=== PATIENT | female | born 1970 | race African-American/Black ===

== ENCOUNTER 2018-11-25 15:02 | Inpatient (IN) | payer OTHER ==
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
[2018-11-25] MEDS ORDERED: MAG HYDROX/AL HYDROX/SIMETH 30 ML UNIT-DOSE CUP PO PRN (19:13)
[2018-11-25] MEDS ORDERED: NICOTINE POLACRILEX 2 MG GUM BC PRN (19:13)
[2018-11-25] MEDS ORDERED: MENTHOL/PHENOL 1 EACH UD MM PRN (19:13)
[2018-11-25] MEDS ORDERED: ACETAMINOPHEN 325 MG TABLET (FP) PO PRN (19:13)
[2018-11-25] MEDS ORDERED: guaiFENesin 200 MG/10 ML 10 ML UNIT-DOSE CUPS PO PRN (19:13)
[2018-11-25] MEDS ORDERED: P-EPHED 60MG/TRIPROLIDI 2.5MG TABLET PO PRN (19:13)
[2018-11-25] MEDS ORDERED: BENZOYL PEROXIDE TP SCH (19:15)
[2018-11-25] MEDS: MELATONIN 5 MG TABLETS PO PRN (22:08)
[2018-11-25] MEDS: THIAMINE HCL 100 MG TABLET (FP) PO SCH (22:26)
[2018-11-25] MEDS: AMMONIUM LACTATE 12% LOTION 225 GM BOTTLE TP SCH (23:56)
[2018-11-25] MEDS: CLINDAMYCIN PHOSPHATE 1% TOPICAL GEL 30 GM TUBE TP SCH (23:56)
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
[2018-11-26] MEDS: CLINDAMYCIN PHOSPHATE 1% TOPICAL GEL 30 GM TUBE TP SCH ×2 (09:34→21:26)
[2018-11-26] MEDS: AMMONIUM LACTATE 12% LOTION 225 GM BOTTLE TP SCH (09:34)
[2018-11-26] MEDS: PRENATAL VITAMINS W/ FOLIC ACID TABLET (FP) PO SCH (09:34)
[2018-11-26] MEDS ORDERED: BUPRENORPHINE/NALOXONE 8 MG/2 MG FILM PACKET SL ONE (11:04)
[2018-11-26] MEDS ORDERED: BUPRENORPHINE/NALOXONE 2 MG/0.5 MG FILM PACKET SL ONE (11:04)
--- NOTE | 2018-11-26 11:10 | PN ---
[facility] Progress Note Note: CALL FROM NURSE LEONOR CONFIRMING SUBOXONE DOSE FROM PT'S CLINIC AT [facility]. PT ON SUBOXONE 10 MG/2.5 MG SL DAILY, REPORTED CONFIRMED LAST DOSE WAS 11/25/18. PLAN:WILL RESTART SUBOXONE 8 MG/2 MG SL PLUS SUBOXONE 2 MG/0.5 MG SL DAILY. FIRST DOSE NOW. Vital Signs - 24 hr 11/25/18 11/26/18 11/26/18 17:21 00:30 03:30 Temperature 97.0 F L Pulse Rate 86 Respiratory 18 18 18 Rate Blood Pressure 138/94 11/26/18 07:30 Temperature 97.7 F Pulse Rate 74 Respiratory 18 Rate Blood Pressure 121/79 ADMISSION LAB RESULTS PENDING. CONTINUE REHAB TX.
[2018-11-26] MEDS: SERTRALINE HCL 50 MG TABLET (FP) PO SCH (12:22)
[2018-11-26 12:39] LABS: HEMATOCRIT 36.9 % (32.4-45.2); HEMOGLOBIN 12.4 GM/dL (10.7-15.3); MCH 30.6 pg (25.7-33.7); MCHC 33.5 g/dl (32.0-36.0); MEAN CELL VOLUME 91.2 fl (80-96); MEAN PLT VOLUME 8.7 fl (7.5-11.1); PLATELET COUNT 297 K/MM3 (134-434); RBC 4.05 M/mm3 (3.60-5.2); RDW 13.4 % (11.6-15.6); WHITE BLOOD COUNT 4.4 K/mm3 (4.0-10.0)
[2018-11-26 12:41] LABS: ALBUMIN 3.3 g/dl (3.4-5.0); ALK PHOS 79 U/L (45-117); ANION GAP 5 MMOL/L (8-16); BILIRUBIN,TOTAL 0.3 mg/dL (0.2-1); BLOOD UREA NITROGEN 10 mg/dL (7-18); CALCIUM 8.5 mg/dL (8.5-10.1); CHLORIDE 105 mmol/L (98-107); CO2 29 mmol/L (21-32); CREATININE 0.8 mg/dL (0.55-1.3); GLUCOSE,RANDOM 86 mg/dL (74-106); POTASSIUM 4.2 mmol/L (3.5-5.1); SGOT/AST 19 U/L (15-37); SGPT/ALT 18 U/L (13-61); SODIUM 139 mmol/L (136-145); TOT PROT 6.6 g/dl (6.4-8.2)
[2018-11-26] MEDS ORDERED: COLLOIDAL OATMEAL 1 BAR EACH TP PRN (13:26)
[2018-11-26] MEDS ORDERED: BENZOYL PEROXIDE 5% 60 GM GEL..GRAM. TP ONE (13:36)
[2018-11-26] MEDS: BENZOYL PEROXIDE 5% 60 GM GEL..GRAM. TP SCH (14:00)
[2018-11-26] MEDS: NICOTINE 14 MG/24 HOURS TOPICAL PATCH TD SCH (14:16)
[2018-11-26] MEDS: THIAMINE HCL 100 MG TABLET (FP) PO SCH (21:23)
[2018-11-26] MEDS: MIRTAZAPINE 15 MG TABLET (FP) PO SCH (21:25)
[2018-11-26] MEDS: MELATONIN 5 MG TABLETS PO PRN (21:25)
[2018-11-27] MEDS ORDERED: PT OWN MED DRAWER 7, Y5N ONE (08:47)
[2018-11-27] MEDS: BUPRENORPHINE/NALOXONE 2 MG/0.5 MG FILM PACKET SL SCH (09:31)
[2018-11-27] MEDS: NICOTINE 14 MG/24 HOURS TOPICAL PATCH TD SCH (09:31)
[2018-11-27] MEDS: BUPRENORPHINE/NALOXONE 8 MG/2 MG FILM PACKET SL SCH (09:31)
[2018-11-27] MEDS: AMMONIUM LACTATE 12% LOTION 225 GM BOTTLE TP SCH (09:31)
[2018-11-27] MEDS: SERTRALINE HCL 50 MG TABLET (FP) PO SCH (09:32)
[2018-11-27] MEDS: PRENATAL VITAMINS W/ FOLIC ACID TABLET (FP) PO SCH (09:32)
[2018-11-27] MEDS: TRIAMCINOLONE ACET 0.025% OINTMENT 15 GM TUBE TP SCH (09:33)
[2018-11-27] MEDS: CLINDAMYCIN PHOSPHATE 1% TOPICAL GEL 30 GM TUBE TP SCH ×2 (09:33→21:13)
[2018-11-27] MEDS: BENZOYL PEROXIDE 5% 60 GM GEL..GRAM. TP SCH (09:35)
[2018-11-27 12:32] LABS: PH,URINE 6.5 (5.0-8.0); URINE APPEARANCE CLEAR; URINE BILIRUBIN NEGATIVE (NEGATIVE); URINE COLOR YELLOW; URINE GLUCOSE (UA) NEGATIVE (NEGATIVE); URINE KETONE NEGATIVE (NEGATIVE); URINE LEUK ESTERASE NEGATIVE (NEGATIVE); URINE NITRITE NEGATIVE (NEGATIVE); URINE PROTEIN NEGATIVE (NEGATIVE); URINE UROBILINOGEN 0.2 mg/dL (0.2-1.0)
[2018-11-27] MEDS: MIRTAZAPINE 15 MG TABLET (FP) PO SCH (21:10)
[2018-11-27] MEDS: hydrOXYzine PAMOATE 25 MG CAPSULE (FP) PO PRN (21:10)
[2018-11-27] MEDS: THIAMINE HCL 100 MG TABLET (FP) PO SCH (21:11)
[2018-11-28] MEDS: BUPRENORPHINE/NALOXONE 8 MG/2 MG FILM PACKET SL SCH (09:32)
[2018-11-28] MEDS: SERTRALINE HCL 50 MG TABLET (FP) PO SCH (09:32)
[2018-11-28] MEDS: NICOTINE 14 MG/24 HOURS TOPICAL PATCH TD SCH (09:32)
[2018-11-28] MEDS: BUPRENORPHINE/NALOXONE 2 MG/0.5 MG FILM PACKET SL SCH (09:32)
[2018-11-28] MEDS: PRENATAL VITAMINS W/ FOLIC ACID TABLET (FP) PO SCH (09:32)
[2018-11-28] MEDS: BENZOYL PEROXIDE 5% 60 GM GEL..GRAM. TP SCH (09:33)
[2018-11-28] MEDS: AMMONIUM LACTATE 12% LOTION 225 GM BOTTLE TP SCH (09:33)
[2018-11-28] MEDS: TRIAMCINOLONE ACET 0.025% OINTMENT 15 GM TUBE TP SCH (09:34)
[2018-11-28] MEDS ORDERED: PT OWN MED DRAWER 7, Y5N ONE ×4 (09:36→21:38)
[2018-11-28] MEDS: CLINDAMYCIN PHOSPHATE 1% TOPICAL GEL 30 GM TUBE TP SCH ×2 (09:36→21:37)
--- NOTE | 2018-11-28 09:43 | PN ---
[facility] Progress Note Note: PATIENT SEEN FOR C/O SORE THROAT. PATIENT DENIES FEVER, EARACHE AND COUGH. Vital Signs Temperature 97.9 F 11/28/18 07:16 Pulse Rate 69 11/28/18 07:16 Respiratory Rate 18 11/28/18 07:16 Blood Pressure 118/84 11/28/18 07:16 O2 Sat by Pulse Oximetry (%) Laboratory Tests 11/26/18 11/26/18 11/26/18 09:08 09:08 09:08 WBC 4.4 RBC 4.05 Hgb 12.4 Hct 36.9 MCV 91.2 MCH 30.6 MCHC 33.5 RDW 13.4 Plt Count 297 D MPV 8.7 D Sodium 139 Potassium 4.2 Chloride 105 Carbon Dioxide 29 Anion Gap 5 L BUN 10 Creatinine 0.8 Creat Clearance w eGFR 76.24 Random Glucose 86 Calcium 8.5 Total Bilirubin 0.3 AST 19 ALT 18 Alkaline Phosphatase 79 Total Protein 6.6 Albumin 3.3 L Urine Color Urine Appearance Urine pH Ur Specific [place] Urine Protein Urine Glucose (UA) Urine Ketones Urine Blood Urine Nitrite Urine Bilirubin Urine Urobilinogen Ur Leukocyte Esterase RPR Titer Nonreactive 11/27/18 09:45 WBC RBC Hgb Hct MCV MCH MCHC RDW Plt Count MPV Sodium Potassium Chloride Carbon Dioxide Anion Gap BUN Creatinine Creat Clearance w eGFR Random Glucose Calcium Total Bilirubin AST ALT Alkaline Phosphatase Total Protein Albumin Urine Color Yellow Urine Appearance Clear Urine pH 6.5 D Ur Specific [place] 1.012 Urine Protein Negative Urine Glucose (UA) Negative Urine Ketones Negative Urine Blood Negative Urine Nitrite Negative Urine Bilirubin Negative Urine Urobilinogen 0.2 Ur Leukocyte Esterase Negative RPR Titer PE: ALERT AND ORIENTED X 3 SKIN WARM AND DRY NECK SUPPLE,NO JVD ENT ORAL MUCOSA MOIST, PINK, NO VISIBLE EXUDATE, PHARYNX WITH MILD REDNESS TONGUE DRY, LIGHT WHITE COATING ON TONGUE CAR S1S2 RESP CTA BL A/P: PHARYNGITIS THROAT CULTURE AMOXICILLIN 500MG BID X 7 DAYS EMPIRICALLY UNTIL RESULTS AVAILABLE PERIDEX MM CONTINUE TO MONITOR CLINICALLY
[2018-11-28] MEDS: AMOXICILLIN 500 MG CAPSULE (FP) PO SCH ×2 (12:02→21:39)
[2018-11-28] MEDS: CHLORHEXIDINE GLUCONATE 118 ML MOUTHWASH MM SCH ×2 (12:02→21:39)
[2018-11-28] MEDS: THIAMINE HCL 100 MG TABLET (FP) PO SCH (21:36)
[2018-11-28] MEDS: MIRTAZAPINE 15 MG TABLET (FP) PO SCH (21:37)
[2018-11-29] MEDS: AMOXICILLIN 500 MG CAPSULE (FP) PO SCH ×2 (10:07→21:33)
[2018-11-29] MEDS: CHLORHEXIDINE GLUCONATE 118 ML MOUTHWASH MM SCH ×2 (10:08→21:33)
[2018-11-29] MEDS: TRIAMCINOLONE ACET 0.025% OINTMENT 15 GM TUBE TP SCH (10:08)
[2018-11-29] MEDS: BENZOYL PEROXIDE 5% 60 GM GEL..GRAM. TP SCH (10:08)
[2018-11-29] MEDS: NICOTINE 14 MG/24 HOURS TOPICAL PATCH TD SCH (10:09)
[2018-11-29] MEDS: AMMONIUM LACTATE 12% LOTION 225 GM BOTTLE TP SCH (10:09)
[2018-11-29] MEDS: CLINDAMYCIN PHOSPHATE 1% TOPICAL GEL 30 GM TUBE TP SCH ×2 (10:09→21:34)
[2018-11-29] MEDS: BUPRENORPHINE/NALOXONE 8 MG/2 MG FILM PACKET SL SCH (10:10)
[2018-11-29] MEDS: BUPRENORPHINE/NALOXONE 2 MG/0.5 MG FILM PACKET SL SCH (10:10)
[2018-11-29] MEDS: PRENATAL VITAMINS W/ FOLIC ACID TABLET (FP) PO SCH (10:10)
[2018-11-29] MEDS: SERTRALINE HCL 50 MG TABLET (FP) PO SCH (10:57)
[2018-11-29] MEDS: MAGNESIUM HYDROX 2400MG/30ML ORAL SUSPENSION 30 ML CUP PO PRN (17:25)
[2018-11-29] MEDS: THIAMINE HCL 100 MG TABLET (FP) PO SCH (21:32)
[2018-11-29] MEDS: MIRTAZAPINE 15 MG TABLET (FP) PO SCH (21:32)
[2018-11-30] MEDS: PRENATAL VITAMINS W/ FOLIC ACID TABLET (FP) PO SCH (09:36)
[2018-11-30] MEDS: AMOXICILLIN 500 MG CAPSULE (FP) PO SCH ×2 (09:36→21:12)
[2018-11-30] MEDS: SERTRALINE HCL 50 MG TABLET (FP) PO SCH (09:37)
[2018-11-30] MEDS: NICOTINE 14 MG/24 HOURS TOPICAL PATCH TD SCH (09:37)
[2018-11-30] MEDS: AMMONIUM LACTATE 12% LOTION 225 GM BOTTLE TP SCH (09:37)
[2018-11-30] MEDS: BUPRENORPHINE/NALOXONE 8 MG/2 MG FILM PACKET SL SCH (09:37)
[2018-11-30] MEDS: BUPRENORPHINE/NALOXONE 2 MG/0.5 MG FILM PACKET SL SCH (09:37)
[2018-11-30] MEDS: BENZOYL PEROXIDE 5% 60 GM GEL..GRAM. TP SCH (09:38)
[2018-11-30] MEDS: TRIAMCINOLONE ACET 0.025% OINTMENT 15 GM TUBE TP SCH (09:38)
[2018-11-30] MEDS: CHLORHEXIDINE GLUCONATE 118 ML MOUTHWASH MM SCH ×2 (09:38→21:13)
[2018-11-30] MEDS: CLINDAMYCIN PHOSPHATE 1% TOPICAL GEL 30 GM TUBE TP SCH ×2 (09:40→21:13)
[2018-11-30] MEDS: MAGNESIUM CITRATE 300 ML BOTTLE PO PRN (12:37)
[2018-11-30] MEDS: THIAMINE HCL 100 MG TABLET (FP) PO SCH (21:12)
[2018-11-30] MEDS: MIRTAZAPINE 15 MG TABLET (FP) PO SCH (21:12)
[2018-12-01] MEDS: CLINDAMYCIN PHOSPHATE 1% TOPICAL GEL 30 GM TUBE TP SCH ×2 (09:50→21:49)
[2018-12-01] MEDS: TRIAMCINOLONE ACET 0.025% OINTMENT 15 GM TUBE TP SCH (09:50)
[2018-12-01] MEDS: BUPRENORPHINE/NALOXONE 8 MG/2 MG FILM PACKET SL SCH (09:51)
[2018-12-01] MEDS: CHLORHEXIDINE GLUCONATE 118 ML MOUTHWASH MM SCH ×2 (09:51→21:49)
[2018-12-01] MEDS: AMMONIUM LACTATE 12% LOTION 225 GM BOTTLE TP SCH (09:51)
[2018-12-01] MEDS: NICOTINE 14 MG/24 HOURS TOPICAL PATCH TD SCH (09:51)
[2018-12-01] MEDS: BUPRENORPHINE/NALOXONE 2 MG/0.5 MG FILM PACKET SL SCH (09:52)
[2018-12-01] MEDS: PRENATAL VITAMINS W/ FOLIC ACID TABLET (FP) PO SCH (09:52)
[2018-12-01] MEDS: AMOXICILLIN 500 MG CAPSULE (FP) PO SCH ×2 (09:52→21:49)
[2018-12-01] MEDS: SERTRALINE HCL 50 MG TABLET (FP) PO SCH (09:52)
[2018-12-01] MEDS: BENZOYL PEROXIDE 5% 60 GM GEL..GRAM. TP SCH (09:54)
--- NOTE | 2018-12-01 13:04 | PN ---
[facility] Progress Note Note: Microbiology 11/28/18 15:00 Throat Throat Culture - Final Staphylococcus Aureus Beta Hem Streptococcus Group C Results appreciated. Patient started treatment with Amoxicillin 500mg bid x 7days. To continue current treatment. Laboratory Tests 11/26/18 11/26/18 11/26/18 09:08 09:08 09:08 WBC 4.4 RBC 4.05 Hgb 12.4 Hct 36.9 MCV 91.2 MCH 30.6 MCHC 33.5 RDW 13.4 Plt Count 297 D MPV 8.7 D Sodium 139 Potassium 4.2 Chloride 105 Carbon Dioxide 29 Anion Gap 5 L BUN 10 Creatinine 0.8 Creat Clearance w eGFR 76.24 Random Glucose 86 Calcium 8.5 Total Bilirubin 0.3 AST 19 ALT 18 Alkaline Phosphatase 79 Total Protein 6.6 Albumin 3.3 L Urine Color Urine Appearance Urine pH Ur Specific [place] Urine Protein Urine Glucose (UA) Urine Ketones Urine Blood Urine Nitrite Urine Bilirubin Urine Urobilinogen Ur Leukocyte Esterase RPR Titer Nonreactive 11/27/18 09:45 WBC RBC Hgb Hct MCV MCH MCHC RDW Plt Count MPV Sodium Potassium Chloride Carbon Dioxide Anion Gap BUN Creatinine Creat Clearance w eGFR Random Glucose Calcium Total Bilirubin AST ALT Alkaline Phosphatase Total Protein Albumin Urine Color Yellow Urine Appearance Clear Urine pH 6.5 D Ur Specific [place] 1.012 Urine Protein Negative Urine Glucose (UA) Negative Urine Ketones Negative Urine Blood Negative Urine Nitrite Negative Urine Bilirubin Negative Urine Urobilinogen 0.2 Ur Leukocyte Esterase Negative RPR Titer Vital Signs Temperature 97.7 F 12/01/18 07:05 Pulse Rate 80 12/01/18 07:05 Respiratory Rate 18 12/01/18 07:05 Blood Pressure 112/77 12/01/18 07:05 O2 Sat by Pulse Oximetry (%)
[2018-12-01] MEDS: THIAMINE HCL 100 MG TABLET (FP) PO SCH (21:47)
[2018-12-01] MEDS: hydrOXYzine PAMOATE 25 MG CAPSULE (FP) PO PRN (21:48)
[2018-12-01] MEDS: MIRTAZAPINE 15 MG TABLET (FP) PO SCH (21:48)
[2018-12-02] MEDS ORDERED: PT OWN MED DRAWER 7, Y5N ONE (09:16)
[2018-12-02] MEDS: AMOXICILLIN 500 MG CAPSULE (FP) PO SCH ×2 (09:54→21:26)
[2018-12-02] MEDS: NICOTINE 14 MG/24 HOURS TOPICAL PATCH TD SCH (09:54)
[2018-12-02] MEDS: SERTRALINE HCL 50 MG TABLET (FP) PO SCH (09:54)
[2018-12-02] MEDS: PRENATAL VITAMINS W/ FOLIC ACID TABLET (FP) PO SCH (09:54)
[2018-12-02] MEDS: IBUPROFEN 400 MG TABLET (FP) PO PRN (09:56)
[2018-12-02] MEDS: BUPRENORPHINE/NALOXONE 8 MG/2 MG FILM PACKET SL SCH (09:56)
[2018-12-02] MEDS: CLINDAMYCIN PHOSPHATE 1% TOPICAL GEL 30 GM TUBE TP SCH ×2 (09:57→21:26)
[2018-12-02] MEDS: BUPRENORPHINE/NALOXONE 2 MG/0.5 MG FILM PACKET SL SCH (09:57)
[2018-12-02] MEDS: TRIAMCINOLONE ACET 0.025% OINTMENT 15 GM TUBE TP SCH (09:57)
[2018-12-02] MEDS: AMMONIUM LACTATE 12% LOTION 225 GM BOTTLE TP SCH (09:58)
[2018-12-02] MEDS: CHLORHEXIDINE GLUCONATE 118 ML MOUTHWASH MM SCH ×2 (09:59→21:26)
[2018-12-02] MEDS: BENZOYL PEROXIDE 5% 60 GM GEL..GRAM. TP SCH (10:00)
[2018-12-02] MEDS: MIRTAZAPINE 15 MG TABLET (FP) PO SCH (21:26)
[2018-12-02] MEDS: THIAMINE HCL 100 MG TABLET (FP) PO SCH (21:26)
[2018-12-02] MEDS: MELATONIN 5 MG TABLETS PO PRN (21:27)
[2018-12-03] MEDS ORDERED: PT OWN MED DRAWER 7, Y5N ONE ×2 (08:54→10:05)
[2018-12-03] MEDS: AMOXICILLIN 500 MG CAPSULE (FP) PO SCH ×2 (10:01→21:06)
[2018-12-03] MEDS: AMMONIUM LACTATE 12% LOTION 225 GM BOTTLE TP SCH (10:04)
[2018-12-03] MEDS: BENZOYL PEROXIDE 5% 60 GM GEL..GRAM. TP SCH (10:04)
[2018-12-03] MEDS: TRIAMCINOLONE ACET 0.025% OINTMENT 15 GM TUBE TP SCH (10:04)
[2018-12-03] MEDS: CHLORHEXIDINE GLUCONATE 118 ML MOUTHWASH MM SCH ×2 (10:05→21:06)
[2018-12-03] MEDS: CLINDAMYCIN PHOSPHATE 1% TOPICAL GEL 30 GM TUBE TP SCH ×2 (10:06→21:06)
[2018-12-03] MEDS: PRENATAL VITAMINS W/ FOLIC ACID TABLET (FP) PO SCH (10:07)
[2018-12-03] MEDS: SERTRALINE HCL 50 MG TABLET (FP) PO SCH (10:07)
[2018-12-03] MEDS: NICOTINE 14 MG/24 HOURS TOPICAL PATCH TD SCH (10:07)
[2018-12-03] MEDS: IBUPROFEN 400 MG TABLET (FP) PO PRN (10:08)
[2018-12-03] MEDS: BUPRENORPHINE/NALOXONE 8 MG/2 MG FILM PACKET SL SCH (10:10)
[2018-12-03] MEDS: BUPRENORPHINE/NALOXONE 2 MG/0.5 MG FILM PACKET SL SCH (10:11)
[2018-12-03] MEDS: MAGNESIUM HYDROX 2400MG/30ML ORAL SUSPENSION 30 ML CUP PO PRN (17:59)
[2018-12-03] MEDS: THIAMINE HCL 100 MG TABLET (FP) PO SCH (21:05)
[2018-12-03] MEDS: MIRTAZAPINE 15 MG TABLET (FP) PO SCH (21:05)
[2018-12-04] MEDS ORDERED: PT OWN MED DRAWER 7, Y5N ONE (08:38)
[2018-12-04] MEDS: AMMONIUM LACTATE 12% LOTION 225 GM BOTTLE TP SCH (10:12)
[2018-12-04] MEDS: BENZOYL PEROXIDE 5% 60 GM GEL..GRAM. TP SCH (10:12)
[2018-12-04] MEDS: AMOXICILLIN 500 MG CAPSULE (FP) PO SCH ×2 (10:12→21:24)
[2018-12-04] MEDS: TRIAMCINOLONE ACET 0.025% OINTMENT 15 GM TUBE TP SCH (10:12)
[2018-12-04] MEDS: CLINDAMYCIN PHOSPHATE 1% TOPICAL GEL 30 GM TUBE TP SCH ×2 (10:12→21:24)
[2018-12-04] MEDS: NICOTINE 14 MG/24 HOURS TOPICAL PATCH TD SCH (10:13)
[2018-12-04] MEDS: SERTRALINE HCL 50 MG TABLET (FP) PO SCH (10:13)
[2018-12-04] MEDS: PRENATAL VITAMINS W/ FOLIC ACID TABLET (FP) PO SCH (10:13)
[2018-12-04] MEDS: BUPRENORPHINE/NALOXONE 8 MG/2 MG FILM PACKET SL SCH (10:13)
[2018-12-04] MEDS: BUPRENORPHINE/NALOXONE 2 MG/0.5 MG FILM PACKET SL SCH (10:14)
[2018-12-04] MEDS: CHLORHEXIDINE GLUCONATE 118 ML MOUTHWASH MM SCH ×2 (10:15→21:24)
[2018-12-04] MEDS: MAGNESIUM CITRATE 300 ML BOTTLE PO PRN (10:37)
[2018-12-04] MEDS: MELATONIN 5 MG TABLETS PO PRN (21:23)
[2018-12-04] MEDS: MIRTAZAPINE 15 MG TABLET (FP) PO SCH (21:23)
[2018-12-04] MEDS: hydrOXYzine PAMOATE 25 MG CAPSULE (FP) PO PRN (21:23)
[2018-12-04] MEDS: THIAMINE HCL 100 MG TABLET (FP) PO SCH (21:23)
[2018-12-05 07:18] VITALS: BP 115/71; PULSE 77; TEMP 97.8
--- NOTE | 2018-12-05 08:43 | PN ---
S Progress Note Note: Psychiatric nurse practitioner note: Patient is scheduled for discharge today. A 30 day prescription of zoloft 200mg + Wellbutrin 300mg XL + Mirtazapine 15mg was electronically sent to [facility] pharmacy #[id number], [address] [id number].
[2018-12-05] MEDS ORDERED: PT OWN MED DRAWER 7, Y5N ONE (09:04)
[2018-12-05] MEDS: AMMONIUM LACTATE 12% LOTION 225 GM BOTTLE TP SCH (09:06)
[2018-12-05] MEDS: CHLORHEXIDINE GLUCONATE 118 ML MOUTHWASH MM SCH (09:06)
[2018-12-05] MEDS: BENZOYL PEROXIDE 5% 60 GM GEL..GRAM. TP SCH (09:06)
[2018-12-05] MEDS: CLINDAMYCIN PHOSPHATE 1% TOPICAL GEL 30 GM TUBE TP SCH (09:06)
[2018-12-05] MEDS: TRIAMCINOLONE ACET 0.025% OINTMENT 15 GM TUBE TP SCH (09:06)
[2018-12-05] MEDS: BUPRENORPHINE/NALOXONE 8 MG/2 MG FILM PACKET SL SCH (09:09)
[2018-12-05] MEDS: SERTRALINE HCL 50 MG TABLET (FP) PO SCH (09:09)
[2018-12-05] MEDS: BUPRENORPHINE/NALOXONE 2 MG/0.5 MG FILM PACKET SL SCH (09:09)
[2018-12-05] MEDS: NICOTINE 14 MG/24 HOURS TOPICAL PATCH TD SCH (09:09)
[2018-12-05] MEDS: PRENATAL VITAMINS W/ FOLIC ACID TABLET (FP) PO SCH (09:09)
--- NOTE | 2018-12-05 12:44 | PN ---
[facility] Progress Note Note: PT COMPLETED REHAB AND DISCHARGED TODAY. PT MET WITH HER COUNSELOR, MS COMBS WHO HAS REFERRED PT TO [facility] AT [address], [place]. PT ALSO STATES SHE IS GOING BACK TO HER SUBOXONE MAINTENANCE CLINIC AT [facility] IN THE [place] . PT REPORTS SHE HAS A PCP, DR. THORPE AT [place], [place]. Home Medications Medication Instructions Recorded Mirtazapine [Remeron -] 15 mg PO HS 05/18/15 Ammonium Lactate Lotion 1 applic TP ASDIR 11/25/18 [Lac-Hydrin 12% Lotion -] Benzoyl Peroxide [Bp Wash] 227 gm TP DAILY 11/25/18 Buprenorphine HCl/Naloxone HCl 2 each SL DAILY 11/25/18 [Suboxone 8 mg-2 mg Sl Tablets] Bupropion HCl [Wellbutrin Xl -] 300 mg PO HS 11/25/18 Clindamycin 1% Gel [Cleocin] 0 gm TP TID 11/25/18 Mirtazapine [Remeron -] 15 mg PO HS 11/25/18 Bupropion HCl [Wellbutrin Xl -] 300 mg PO HS #30 tab.sr.24h 12/05/18 Mirtazapine [Remeron -] 15 mg PO HS #30 tablet 12/05/18 Sertraline HCl [Zoloft] 200 mg PO DAILY #60 tablet 12/05/18 Vital Signs - 24 hr 12/05/18 12/05/18 12/05/18 00:30 03:30 07:17 Temperature 97.8 F Pulse Rate 77 Respiratory 17 17 16 Rate Blood Pressure 115/71 Laboratory Tests 11/26/18 11/26/18 11/26/18 09:08 09:08 09:08 WBC 4.4 RBC 4.05 Hgb 12.4 Hct 36.9 MCV 91.2 MCH 30.6 MCHC 33.5 RDW 13.4 Plt Count 297 D MPV 8.7 D Sodium 139 Potassium 4.2 Chloride 105 Carbon Dioxide 29 Anion Gap 5 L BUN 10 Creatinine 0.8 Creat Clearance w eGFR 76.24 Random Glucose 86 Calcium 8.5 Total Bilirubin 0.3 AST 19 ALT 18 Alkaline Phosphatase 79 Total Protein 6.6 Albumin 3.3 L Urine Color Urine Appearance Urine pH Ur Specific [place] Urine Protein Urine Glucose (UA) Urine Ketones Urine Blood Urine Nitrite Urine Bilirubin Urine Urobilinogen Ur Leukocyte Esterase RPR Titer Nonreactive 11/27/18 09:45 WBC RBC Hgb Hct MCV MCH MCHC RDW Plt Count MPV Sodium Potassium Chloride Carbon Dioxide Anion Gap BUN Creatinine Creat Clearance w eGFR Random Glucose Calcium Total Bilirubin AST ALT Alkaline Phosphatase Total Protein Albumin Urine Color Yellow Urine Appearance Clear Urine pH 6.5 D Ur Specific [place] 1.012 Urine Protein Negative Urine Glucose (UA) Negative Urine Ketones Negative Urine Blood Negative Urine Nitrite Negative Urine Bilirubin Negative Urine Urobilinogen 0.2 Ur Leukocyte Esterase Negative RPR Titer NAD MEDICALLY STABLE PLAN:FOLLOW UP WITH CD AFTERCARE AT [facility] RECOMMENDED ON 12/09/18 AT 14: 30 P.M. FOLLOW UP AND CONTINUE WITH SUBOXONE TREATMENT MAINTENANCE AT [facility] TODAY, 12/05/18BAFTER DISCHARGE. FOLLOW UP WITH YOUR PCP DR. THORPE FOR MEDICAL MANAGEMENT 1-2 WEEKS AFTER DISCHARGE. DX: Strep throat (Acute) Alcohol dependence (Chronic) Cocaine dependence (Chronic) Nicotine dependence (Chronic) Opioid dependence on agonist therapy (Chronic)
== END 2018-12-05 09:15 | disposition home or self-care (01) | DRG 772 ==
LOC: YASAS 15:02 → Y3E 19:41
PROVIDERS: ADMIT Neuromusculoskeletal Medicine & OMM; ATTEND Neuromusculoskeletal Medicine & OMM
PROC: HZ42ZZZ Group Counseling for Substance Abuse Treatment, Cognitive-Behavioral (ICD-10-PCS; principal; 2018-11-25)
DX: F10.20 Alcohol dependence, uncomplicated (principal); F11.20 Opioid dependence, uncomplicated; F14.20 Cocaine dependence, uncomplicated; F17.210 Nicotine dependence, cigarettes, uncomplicated; F43.10 Post-traumatic stress disorder, unspecified; F32.9 Major depressive disorder, single episode, unspecified; F19.24 Other psychoactive substance dependence with psychoactive substance-induced mood disorder; F19.282 Other psychoactive substance dependence with psychoactive substance-induced sleep disorder; J02.0 Streptococcal pharyngitis; H54.40 Blindness, one eye, unspecified eye; Z87.42 Personal history of other diseases of the female genital tract; Z91.013 Allergy to seafood
CPT/HCPCS: 36415; 80053; 81003; 85027; 86593; 87070; 87077; 87186